=== PATIENT | male | born 1955 | race Two or more races ===

== ENCOUNTER 2020-04-21 11:20 | Outpatient (REF) | payer OTHER, SELFPAY | END 2020-04-21 11:21 | disposition home or self-care (01) | LOC: HO.LAB 11:20 | PROVIDERS: Visit Provider Internal Medicine | DX: Z20.828 Contact with and (suspected) exposure to other viral communicable diseases (principal) | CPT/HCPCS: 87635 ==

== ENCOUNTER 2020-06-10 15:48 | Outpatient (REF) | payer OTHER, SELFPAY | END 2020-06-10 15:49 | disposition home or self-care (01) | LOC: HO.HAP 15:48 | PROVIDERS: Visit Provider Hospitalist | DX: Z46.1 Encounter for fitting and adjustment of hearing aid (principal) | CPT/HCPCS: V5266 ==

== ENCOUNTER 2020-06-29 15:29 | Outpatient (REF) | payer OTHER, SELFPAY | END 2020-06-29 15:30 | disposition home or self-care (01) | LOC: HO.HAP 15:29 | PROVIDERS: Visit Provider Hospitalist | DX: Z46.1 Encounter for fitting and adjustment of hearing aid (principal); H90.3 Sensorineural hearing loss, bilateral | CPT/HCPCS: 92593; 99499 ==

== ENCOUNTER → 2021-07-08 10:37 | Outpatient (BNVA) | payer SELFPAY | PROVIDERS: PCP Hospitalist; Visit Provider Internal Medicine | DX: Z02.79 Encounter for issue of other medical certificate (principal) ==

== ENCOUNTER 2022-10-29 19:55 | Emergency (ER) | payer OTHER, SELFPAY ==
--- NOTE | ~2022-10-29 | XR_ITS ---
EXAMINATION: XR LUMBOSACRAL SPINE CLINICAL INFORMATION: Back pain COMPARISON: None available. TECHNIQUE: Three views of the lumbosacral spine. FINDINGS: No fracture. No subluxation. Alignment of vertebrae is normal. Mild degenerative lipping at the anterior endplates of lower thoracic vertebrae and at the anterior superior endplate of L5. Mild lumbar disc height narrowing at L4-L5. Mild facet joint arthrosis at the lumbosacral junction. Sacroiliac joint is normal. Moderate to large-volume of stool in the right colon. No abnormally dilated bowel loop. XR/XR lumbar spine 2-3V IMPRESSION: 1. No acute abnormality. 2. Mild degenerative spondylosis of lumbar spine. 3. Moderate to large-volume of stool in right colon.
[2022-10-29 20:15] VITALS: BP 179/93; PULSE 86; RESP 18; TEMP 36.8; O2SAT 96; BMI 27.4
--- NOTE | 2022-10-29 20:18 | ED_ITS ---
HPI - Back Pain/Injury General Chief Complaint: Back Pain/Injury <VARINDER Morillo - Last Filed: 10/29/22 20:22> Stated Complaint: back pain, no injury <VARINDER Morillo - Last Filed: 10/29/22 20:22> Time Seen by Provider: 10/29/22 21:24 <VARINDER Morillo - Last Filed: 10/29/22 20:22> Source: patient and family <Yadira Portillo MD - Last Filed: 10/29/22 22:31> Mode of arrival: ambulatory <Yadira Portillo MD - Last Filed: 10/29/22 22:31> History of Present Illness HPI Narrative: 67-year-old male who states that he has had an acute on chronic exacerbation of his underlying lower back/sciatica that he is unsure whether not he should attribute to starting jogging or the changing of his tire. He denies any associated fever, chills, IVDA history. He denies any weakness into either lower extremity, no bowel or bladder dysfunction and no saddle anesthesia. <Yadira Portillo MD - Last Filed: 10/29/22 22:31> Related Data Home Medications: Previous Rx's Medication Instructions Recorded cyclobenzaprine 5 mg tablet 5 mg PO BEDTIME PRN muscle spasm 10/29/22 #4 tabs ketorolac 10 mg tablet 10 mg PO Q6H PRN pain 5 days #20 10/29/22 tabs <VARINDER Morillo - Last Filed: 10/29/22 20:22> Allergies/Adverse Reactions: Allergies Allergy/AdvReac Type Severity Reaction Status Date / Time No Known Allergies Allergy Unverified 03/12/20 16:01 <VARINDER Morillo - Last Filed: 10/29/22 20:22> Review of Systems Review of Systems: Pertinent positives and negatives as stated in HPI <Yadira Portillo MD - Last Filed: 10/29/22 22:31> PMFSH Past Medical History Source: nursing notes reviewed <Yadira Portillo MD - Last Filed: 10/29/22 22:31> Social History Social History: Social History Advance Directives: No Advance Directives Information Provided: No <VARINDER Morillo - Last Filed: 10/29/22 20:22> Physical Exam Vital Signs: Vital Signs: Last Vital Signs Temp 98.3 F 10/29/22 20:15 Pulse 86 10/29/22 20:15 Resp 18 10/29/22 20:15 BP 179/93 H 10/29/22 20:15 Pulse Ox 96 10/29/22 20:15 O2 Del Method Room Air 10/29/22 20:15 BMI result Body Mass Index 27.4 <VARINDER Morillo - Last Filed: 10/29/22 20:22> Vital Signs: Last Vital Signs Temp 98.3 F 10/29/22 20:15 Pulse 86 10/29/22 20:15 Resp 18 10/29/22 20:15 BP 179/93 H 10/29/22 20:15 Pulse Ox 96 10/29/22 20:15 O2 Del Method Room Air 10/29/22 20:15 BMI result Body Mass Index 27.4 VITAL SIGNS: Reviewed. GENERAL: Well developed, well nourished, in no acute distress. HEAD: Normocephalic/atraumatic EYES: PERRLA, EOMI EARS: Ext canals without abnormality NOSE: Nares patent bilateral OROPHARYNX: no oral lesions noted, posterior pharynx clear NECK: Supple, no adenopathy LUNGS: Normal breath sounds. No adventitious sounds or accessory muscle use. SpO2<96> CARDIOVASCULAR: Regular rate and rhythm without noted murmurs ABDOMEN: Soft, non-tender, non-distended with bowel sounds. BACK: no midline vertebral tenderness or step-offs MUSCULOSKELETAL: No tenderness, deformities, or effusions noted on gross inspection. EXTREMITIES: No cyanosis, clubbing or edema. SKIN: Inspection of the skin reveals no rashes NEUROLOGIC: Alert and oriented x 4. Strength and sensation to light touch were grossly intact x 4. <Yadira Portillo MD - Last Filed: 10/29/22 22:31> Course Course Course Narrative: RME: 67yo M presenting to the ED complaining of low back pain radiating down RLE since this morning. Admits attempted to jog and changed tired 2 days ago, however denies direct injury/trauma or fall. Took Meloxicam at 11:00 without relief. Denies fever, urinary incontinence/retention + mild lower lumbar midline and left-sided paraspinal tenderness. Ambulating with steady gait. X-ray, IM Toradol, Lidoderm patch ordered Full HPI, ROS and PE to be performed by primary ED provider. <VARINDER Morillo - Last Filed: 10/29/22 20:22> Medications Administered Discontinued Medications Generic Name Dose Route Start Last Admin Trade Name Freq PRN Reason Stop Dose Admin Ketorolac Tromethamine 30 mg 10/29/22 20:19 10/29/22 21:22 Ketorolac Tromethamine 30 Mg/Ml Vial IM 10/29/22 20:20 30 mg ONCE ONE Administration Lidocaine 1 patch 10/29/22 20:21 10/29/22 21:22 Lidocaine 4 % Patch Adh..Patch TRANSDERMA 10/29/22 20:22 1 patch ONCE ONE Administration Protocol <VARINDER Morillo - Last Filed: 10/29/22 20:22> Medications Administered Discontinued Medications Generic Name Dose Route Start Last Admin Trade Name Freq PRN Reason Stop Dose Admin Ketorolac Tromethamine 30 mg 10/29/22 20:19 10/29/22 21:22 Ketorolac Tromethamine 30 Mg/Ml Vial IM 10/29/22 20:20 30 mg ONCE ONE Administration Lidocaine 1 patch 10/29/22 20:21 10/29/22 21:22 Lidocaine 4 % Patch Adh..Patch TRANSDERMA 10/29/22 20:22 1 patch ONCE ONE Administration Protocol <Yadira Portillo MD - Last Filed: 10/29/22 22:31> Medical Decision Making Medical Decision Making MDM Narrative: 67-year-old male with history and clinical presentation consistent with acute on chronic back pain with sciatica, no clinical suspicion for cauda equina. This is an atraumatic back pain <Yadira Portillo MD - Last Filed: 10/29/22 22:31> Differential Diagnosis Please see the discussion above <Yadira Portillo MD - Last Filed: 10/29/22 22:31> Radiology Impression Radiologist Impression: My interpretation is that there are no gross bony abnormalities. Radiology has not completed the read in 2-1/2 hours and will discharge the patient as there are no concerning or red flag symptoms. <Yadira Portillo MD - Last Filed: 10/29/22 22:31> Discharge Plan Discharge Clinical Impression: Strain of lumbar region, Sciatica <VARINDER Morillo Last Filed: 10/29/22 20:22> Patient Disposition: Home, Self-Care <VARINDER Morillo Last Filed: 10/29/22 20:22> Instructions: Low Back Strain (ED), Acute Low Back Pain (ED), Muscle Spasm (ED), Lower Back Exercises (ED) <VARINDER Morillo Last Filed: 10/29/22 20:22> Additional Instructions: 1. Tylenol 1000 mg, orally, every 6 hours as needed for pain control. Do not exceed 4000 mg within 24 hours. 2. Lidocaine patch, apply to area of maximal tenderness as directed on the outside packaging. 3. You received a prescription for Toradol (ketorolac) as well as cyclobenzaprine (Flexeril). You should use these medications as prescribed. 4. Please follow-up with your primary care provider in the next 2-3 days for re- evaluation further outpatient management. Return to the ER for any worsening symptoms. <VARINDER Morillo Last Filed: 10/29/22 20:22> Prescriptions: New cyclobenzaprine 5 mg tablet 5 mg PO BEDTIME PRN (Reason: muscle spasm) Qty: 4 0RF ketorolac 10 mg tablet 10 mg PO Q6H PRN (Reason: pain) 5 Days Qty: 20 0RF Rx Instructions: Patient received Toradol in the emergency room <VARINDER Morillo Last Filed: 10/29/22 20:22>
[2022-10-29] MEDS: Ketorolac Tromethamine 30 MG/ML VIAL IM (21:22)
[2022-10-29] MEDS: Lidocaine 4 % Patch ADH..PATCH 1 PATCH TRANSDERMA (21:22)
[2022-10-29] MEDS: Acetaminophen 325 MG TABLET 975 MG PO (22:27)
[2022-10-29] MEDS: Cyclobenzaprine HCl 5 MG TABLET PO (22:27)
== END 2022-10-29 22:46 | disposition home or self-care (01) ==
PROVIDERS: Emergency Provider Student in an Organized Health Care Education/Training Program
DX: S39.012A Strain of muscle, fascia and tendon of lower back, initial encounter (principal); X50.0XXA Overexertion from strenuous movement or load, initial encounter; M54.41 Lumbago with sciatica, right side; Y93.89 Activity, other specified; Y92.038 Other place in apartment as the place of occurrence of the external cause; Y99.9 Unspecified external cause status
CPT/HCPCS: 72100; 96372; 99283; 99284; J1885

== ENCOUNTER 2025-03-29 22:45 | Emergency (ER) | payer OTHER, SELFPAY ==
--- NOTE | ~2025-03-29 | XR_ITS ---
CLINICAL HISTORY: l knee pain Exam: AP, lateral, and oblique views of the left knee. Comparison: None provided. Findings: Bony alignment is anatomic. No acute fracture. Joint spaces are well preserved. Small joint effusion. Impression: Small joint effusion without acute bony abnormality. This document has been electronically signed by: Anuel Salvador MD on 03/29/2025 23:20:08
[2025-03-29 22:54] VITALS: BP 167/91; PULSE 80; RESP 16; TEMP 36.2; O2SAT 95; BMI 25.8
--- NOTE | 2025-03-30 01:39 | PC.NURSE ---
pt awaiting to be seen, pt reports pain for one month to left knee, Knee is not red or warm to touch, positive pulse and cms.
--- NOTE | 2025-03-30 01:43 | ED.GENADULT ---
HPI - General Adult General Chief complaint: Extremity Problem Stated complaint: LEFT KNEE PAIN Time Seen by Provider: 03/30/25 01:26 Source: patient Limitations: no limitations History of Present Illness ED Provider: Meche Mulligan PA-C HPI narrative: 69-year-old male with a history of sciatica presents with left knee pain x1 month. Patient states he does exercises where he ?kicks his legs forcefully forward?, to stretch his back out. Patient is unsure if he injured his left knee while performing his stretches. Denies actual trauma, redness, warmth of the joint, no fevers. Denies new activity or overuse injury. Related Data Previous Rx's ?Medication ?Instructions ?Recorded cyclobenzaprine 5 mg tablet 5 mg PO BEDTIME PRN muscle spasm 10/29/22 #4 tabs ketorolac 10 mg tablet 10 mg PO Q6H PRN pain 5 days #20 10/29/22 tabs meloxicam 15 mg tablet 15 mg PO DAILY PRN pain, moderate 03/30/25 #7 tabs Allergies Allergy/AdvReac Type Severity Reaction Status Date / Time No Known Allergies Allergy Verified 03/29/25 22:56 Review of Systems Review of Systems: Yes all other systems are reviewed and are negative Constitutional: Constitutional: Denies fatigue and Denies fever(s) Cardiovascular: Cardiovascular: Denies chest pain and Denies dyspnea Respiratory: Respiratory: Denies dyspnea Musculoskeletal: Musculoskeletal: Reports arthralgias and Denies joint swelling Integumentary/Breasts: Skin/Breast: Denies erythema Endocrine: Endocrine: Denies fatigue PMFSH Past Medical History Attestation statement: The following information was validated with the patient. Social History Social History Smoked in Last 30 Days: No Use of substances other than those prescribed or required for medical reasons: No Advance Directives: No Advance Directives Information Provided: Yes Do you have a plan to hurt others: No Plan Physical Exam ED Vital Signs: Vital Signs - 24 hr 03/29/25 22:54 03/30/25 02:36 Temperature 97.2 F 97.2 F Pulse Rate 80 84 Respiratory Rate 16 16 Blood Pressure 167/91 H 150/80 H Pulse Oximetry 95 99 Oxygen Delivery Method Room Air Room Air BMI result Body Mass Index 25.8 Const Other: Alert well-appearing Orientation/consciousness: patient oriented x3 Resp Effort & Inspection: normal respiratory effort Cardio Other: Normal peripheral perfusion Skin Other: Warm dry no rash Neuro General: patient oriented x3, gait normal, no focal motor deficits and CN's II-XI intact bilaterally Extrem Other: No swelling no deformity no redness or warmth of the joint, the patient has full flexion and extension and he is ambulatory Psych Other: Cooperative Medications Administered Discontinued Medications Generic Name Dose Route Start Last Admin Trade Name Cristina PRN Reason Stop Dose Admin Ketorolac Tromethamine 15 mg 03/30/25 02:18 03/30/25 02:22 Ketorolac Tromethamine 15 Mg/Ml Vial IM 03/30/25 02:19 15 mg ONCE ONE Administration Medical Decision Making Medical Decision Making [facility] Narrative: 69-year-old male with a history of sciatica presents with left knee pain x1 month. Patient states he does exercises where he ?kicks his legs forcefully forward?, to stretch his back out. Patient is unsure if he injured his left knee while performing his stretches. Denies actual trauma, redness, warmth of the joint, no fevers. Denies new activity or overuse injury. No relevant chronic issues History: Per patient I have considered the following differential diagnoses: Fracture, dislocation, contusion, strain, septic joint, gout Plan: Patient has an unremarkable exam, x-rays ordered from triage, he has a small effusion. Perhaps he strained it while doing his stretches. We will send with home care instructions . His exam was not consistent with a septic joint, or gout. I have independently reviewed the following tests: Left knee x-ray:Exam: AP, lateral, and oblique views of the left knee. Comparison: None provided. Findings: Bony alignment is anatomic. No acute fracture. Joint spaces are well preserved. Small joint effusion. Impression: Small joint effusion without acute bony abnormality. Differential Diagnosis Differential Diagnoses: The differential diagnosis associated with the presentation includes See medical decision-making Admission/Observation Consideration of admission/observation: Escalation of care including admission/observation considered Not applicable Radiology Impression Discussion of test interpretation with radiology: I have reviewed the radiologist's reading. Discharge Plan Discharge Clinical Impression: Effusion of knee joint, left Patient Disposition: Home, Self-Care Instructions: Swollen Knee Joint (ED), P.R.I.C.E. Treatment (ED) Additional Instructions: The x-ray was negative for fracture or dislocation, you do have some fluid within the joint, likely from inflammation. See home care instructions. I am providing you with a contact for our orthopedic service. Take the meloxicam as directed this is an anti-inflammatory, take it with food. Prescriptions: New meloxicam 15 mg tablet 15 mg PO DAILY PRN (Reason: pain, moderate) Qty: 7 0RF No Action cyclobenzaprine 5 mg tablet 5 mg PO BEDTIME PRN (Reason: muscle spasm) Qty: 4 0RF ketorolac 10 mg tablet 10 mg PO Q6H PRN (Reason: pain) 5 Days Qty: 20 0RF Rx Instructions: Patient received Toradol in the emergency room Referrals: Brandon Eli MD [Physician, Orthopedics] Referral Note: left knee pain/effusion Interventions: ED Discharge Assessment Last Done: 03/30/25 02:36 Discharge Date/Time: 03/30/25 02:37 Print Language: Thai
--- NOTE | 2025-03-30 02:35 | PC.NURSE ---
reviewed discharge instructions, pt verbalized understanding, no sign of distress upon discharge.
--- OUTSIDE RECORDS SUMMARY | 2025-03-30 02:35 | XMS_ITS | Encounter Summary ---
Author Organization [facility] Address [address] [place] [address] Phone Care Team Providers Care Necktie Centralizing Machine Operator Name Role Phone Rafael Vera MD Primary Care Provider [phone] Encounter Details Date Type Department Care Team (Late st Contact Info) Description 07/24/2019 Procedure Pass [facility] [address] [place] [address] Social History Tobacco Use Types Packs/Day Years Used Date Smoking Tobacco: Former Cigarettes 1 40 Smokeless Tobacco: Never Alcohol Use Standard Drinks/Week Comments No 0 (1 standard drink = 0.6 oz pur e alcohol) Sex and Gender Information Value Date Recorded Sex Assigned at Not on file Legal Sex Male 5:53 PM EST Gender Identity Not on file Sexual Orientation Not on file documented as of this encounter Plan of Treatment Not on file documented as of this encounter Visit Diagnoses Not on filedocumented in this encounter Care Teams Necktie Centralizing Machine Operator Relationship Specialty Start Date End Date Rafael Vera MD PCP - General Internal Medicine 02/09/15 documented as of this encounter Additional Source Comments The information contained in this document represents components of the legal health record. It is not the complete legal health record.[facility]
--- OUTSIDE RECORDS SUMMARY | 2025-03-30 02:35 | XMS_ITS | Encounter Summary ---
Author Organization [facility] Address [address] [place] [address] Phone Care Team Providers Care Harness Maker Name Role Phone Rafael Vera MD Primary Care Provider [phone] Encounter Details Date Type Department Care Team (Late st Contact Info) Description 05/26/2017 Procedure Pass [facility], [place] [address] [place] [address] Social History Tobacco Use Types Packs/Day Years Used Date Smoking Tobacco: Some Days Cigarettes 0.3 40 Smokeless Tobacco: Never Alcohol Use Standard [...] on filedocumented in this encounter Care Teams Harness Maker Relationship Specialty Start Date End Date Rafael Vera MD PCP - General Internal Medicine 02/09/15 documented as of this encounter Additional Source Comments The information contained in this document represents components of the legal health record. It is not the complete legal health record.[facility]
--- OUTSIDE RECORDS SUMMARY | 2025-03-30 02:35 | XMS_ITS | Clinical Summary ---
Author Organization [facility] Address [address] [place] [address] Phone Care Team Providers Care Head Custodian Name Role Phone Rafael Vera MD Primary Care Provider [phone] Allergies No known active allergies Medications acetaminophen (TYLENOL) 500 MG tablet Take 500 mg by mouth every 6 (six) hours as needed for pain (specific location in comments). Active therapeutic multivitamin tablet Take 1 tablet by mouth daily. Active cholecalciferol (VITAMIN D3) 25 MCG (1,000 unit) tablet Take 1,000 Units by mouth daily. Active oxymetazoline (AFRIN) 0.05 % nasal spray 2 sprays by Nasal route as needed for congestion. Active albuterol 90 mcg/actuation inhaler Inhale 2 puffs into the lungs every 6 (six) hours as needed for wheezing. Active oxyCODONE 5 MG immediate release tablet Take 1-2 tablets (5-10 mg total) by mouth every 4 (four) hours as needed for moderate pain. 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 Gastroesophageal reflux disease with esophagitis 06/04/2018 Dysphonia 06/04/2018 Asthma Overview (07/19/2019): only managed w prn albuterol very seldom use no triggers known and no steroids or hospitalizations Snores GERD (gastroesophageal reflux disease) Overview (07/19/2019): managed w no medication currently asymptomatic Kidney stone Overview (07/19/2019): last passed one year ago s/p surgery 5 yrs ago Laryngeal cyst Family History Medical History Relation Comments Diabetes Brother Ovarian cancer Mother Relation Status Comments Brother Alive Father Maternal Grandfather Maternal Grandmother Mother Paternal Grandfather Paternal Grandmother Sister Social History Tobacco Use Types Packs/Day Years Used Date Smoking Tobacco: Former Cigarettes 1 40 Smokeless Tobacco: Never Alcohol Use Standard Drinks/Week Comments No 0 (1 standard drink = 0.6 oz pur e alcohol) Education Answer Date Recorded Are you interested in more education? Not on alen e 10/29/2022 Are you concerned about learning? Not on file 10/29/2022 No 10/29/2022 No 10/29/2022 Digital Access Answer Date Recorded No 11/20/2022 No 11/20/2022 No 11/20/2022 Reliable internet access at home? Not on file 11/20/2022 Device with a working camera? Not on file Sex and Gender Information Value Date Recorded Sex Assigned at Not on file Legal Sex Male 5:53 PM EST Gender Identity Not on file Sexual Orientation Not on file Last Filed Vital Signs Vital Sign Reading Time Taken Comments Blood Pressure 144/86 07/24/2019 12:38 PM EST Pulse 79 07/24/2019 12:30 PM EST Temperature 36.3 C (97.4 F) 07/24/2019 12:38 PM EST Respiratory Rate 18 07/24/2019 12:30 PM EST Oxygen Saturation 98% 07/24/2019 12:30 PM EST Inhaled Oxygen Concentration - - Weight 80.7 kg (178 lb) 07/19/2019 1:10 PM EST Height 170.2 cm (5' 7 ) 07/19/2019 1:10 PM EST Body Mass Index 27.88 07/19/2019 1:10 PM EST Plan of Treatment Health Maintenance Due Date Last Done Comments Adult Td,Tdap Booster 1957 LIPID PANEL 1957 DEPRESSION SCREENING 1969 SMOKING Hx and SMOKELESS TOBACCO SCREENING 1970 HEPATITIS C SCREENING 09/03/1975 PNEUMOCOCCAL VACCINES (50+ years) (1 of 2 - PCV) 1976 COLOGUARD 2002 COLONOSCOPY 2002 COLORECTAL CANCER SCREENING 2002 FIT TEST 2002 FOBT 2002 SIGMOIDOSCOPY 2002 VIRTUAL COLONOSCOPY 2002 ZOSTER VACCINES (1 of 2) 09/03/2007 RSV VACCINE (1 - Risk 60-74 years 1-dose series) 2017 ABDOMINAL AORTIC ANEURYSM (AAA) SCREENING 2022 INFLUENZA VACCINE (#1) 2025 , 02/15/2017 COVID-19 VACCINE (3 - 2024-2 6 season) 2025 01/25/2021, 12/28/2020 HEPATITIS A VACCINES Aged Out No long er eligible based on patient's age to complete this topic HIB VACCINES Aged Out No longer eligi ble based on patient's age to complete this topic MENINGOCOCCAL VACCINES (ACWY) Aged Out No longer eligible based on patient's age to complete this topic MENINGOCOCCAL VACCINES (B) Aged Out N o longer eligible based on patient's age to complete this topic Medical Devices Not on file Insurance VARINDER TREJO [id number] [facility] MEDICARE REPLACEMENT MEDICARE REPLACEMENT MEDICARE REPLACEMENT MEDICARE REPLACEMENT [facility] MEDICARE REPLACEMENT Advance Directives For more information, please contact: [phone] (9AM - 5PM [facility], Monday-Monday) Documents on File Type Date Recorded Patient Special Effects Person Expl anation Healthcare Proxy 07/19/2019 healthcare proxy 07/19/19 * Full Code (Presumed) (Latest Code Status on File) Date Activated Date Inactivated Comments 07/24/2019 7:22 AM 07/24/2019 3:35 PM Care Teams Head Custodian Relationship Specialty Start Date End Date Rafael Vera MD PCP - General Internal Medicine 02/09/15 Additional Source Comments The information contained in this document represents components of the legal health record. It is not the complete legal health record.[facility]
[2025-03-30 02:36] VITALS: BP 150/80; PULSE 84; RESP 16; TEMP 36.2; O2SAT 99
--- OUTSIDE RECORDS SUMMARY | 2025-03-30 02:36 | XMS_ITS | Clinical Summary ---
Author Organization [facility] Address [address] [place] [address] Care Team Providers Care Radiology Ct Technologist Name Role Phone Unavailable Primary Care Provider Unavailabl e Allergies No known active allergies Medications ibuprofen 200 MG tablet 4 times a day. Active Ventolin HFA 108 (90 Base) MCG/ACT inhaler INHALE 2 PUFFS BY MOUTH EVERY 6 HOURS NEEDED FOR WHEEZE 06/21/2022 Active Social History Tobacco Use Types Packs/Day Years Used Date Smoking Tobacco: Never Smokeless Tobacco: Never Tobacco Cessation:Counseling Given: Not Answered Sex and Gender Information Value Date Recorded Sex Assigned at Male 04/25/2022 10:29 AM EDT Legal Sex Male 10:29 AM EDT Gender Identity Male 04/25/2022 10:29 AM EDT Sexual Orientation Straight 04/25/2022 10 :29 AM EDT Plan of Treatment Health Maintenance Due Date Last Done Comments CT Colonography 1957 Colonoscopy 1957 Colorectal Cancer Screening 1957 Dental Oral Exam 1957 Dental Prophylaxis 1957 Dental X-Ray: Bitewings 1957 Dental X-Ray: Full Mouth 1957 Depression Screening 1957 FIT DNA/Cologuard 1957 FIT 1957 FOBT 1957 Lipid Panel 1957 SDOH Screening 1957 Sigmoidoscopy 1957 Alcohol/Substance Use Screening 1969 Hepatitis C Screening 09/03/1975 RSV Patients and Patients Aged 60 years or older (1 - Risk 60-74 years 1-dose series) 2017 Tobacco Screening 07/19/2023 07/19/2022 DTaP/Tdap/Td Vaccines (2 - Tdap) 04/09/2024 04/09/2014 COVID-19 Vaccine ( season) 2025 02/23/2022, 01/25/2021, 12/28/2020 Influenza Vaccine (#1) 2025 , 05/17/2019, 04/11/2018, Additional history exists Pneumococcal Vaccine: 50+ Years Completed 07/24/2022, 09/22/2014 Zoster Vaccines Completed 07/24/2022, 01/10/2022 HIB Vaccines Aged Out No longer eligi ble based on patient's age to complete this topic HPV Vaccines Aged Out No longer eligi ble based on patient's age to complete this topic Hepatitis A Vaccines Aged Out No long er eligible based on patient's age to complete this topic Hepatitis B Vaccines Aged Out No long er eligible based on patient's age to complete this topic IPV Vaccines Aged Out No longer eligi ble based on patient's age to complete this topic Meningococcal B Vaccine Aged Out No l onger eligible based on patient's age to complete this topic Meningococcal Vaccine Aged Out No barbi jing eligible based on patient's age to complete this topic RSV under 20 months Aged Out No longe r eligible based on patient's age to complete this topic Rotavirus Vaccines Aged Out No longer eligible based on patient's age to complete this topic Insurance [facility]
--- OUTSIDE RECORDS SUMMARY | 2025-03-30 02:36 | XMS_ITS | Encounter Summary ---
Author Organization [facility] Address [address] [facility] [address] [place] [address] Care Team Providers Care Child Life Specialist Name Role Phone Unavailable Primary Care Provider Unavailabl e Encounter Details Date Type Department Care Team (Latest Contact Info) Description 01/12/2022 Abstract [facility] CONVERSIONS Dental, Provider, DDS Social History Tobacco Use Types Packs/Day Years Used Date Smoking Tobacco: Never Assessed Sex and Gender Information Value Date Recorded Sex Assigned at Male 04/25/2022 10:29 AM EDT Legal Sex Male 10:29 AM EDT Gender Identity Male 04/25/2022 10:29 AM EDT Sexual Orientation Straight 04/25/2022 10 :29 AM EDT documented as of this encounter Plan of Treatment Not on file documented as of this encounter Visit Diagnoses Not on filedocumented in this encounter
--- OUTSIDE RECORDS SUMMARY | 2025-03-30 02:36 | XMS_ITS | Encounter Summary ---
Author Organization [facility] Address [address] [place] [id number] Phone Care Team Providers Care Pin Worker Name Role Phone Rafael Vera MD Primary Care Provider [phone] Encounter Details Date Type Department Care Team (Late st Contact Info) Description 06/21/2017 Procedure Pass [facility] [address] [place] [address] Social History Tobacco Use Types Packs/Day Years [...] on filedocumented in this encounter Care Teams Pin Worker Relationship Specialty Start Date End Date Rafael Vera MD PCP - General Internal Medicine 02/09/15 documented as of this encounter Additional Source Comments The information contained in this document represents components of the legal health record. It is not the complete legal health record.[facility]
--- OUTSIDE RECORDS SUMMARY | 2025-03-30 02:36 | XMS_ITS | Encounter Summary ---
Author Organization [facility] Address [address] [facility] [address] [place] [id number] Phone Care Team Providers Care Physician Relations Representative Name Role Phone Rafael Vera MD Primary Care Provider [phone] Encounter Details Date Type Department Care Team (Late st Contact Info) Description 02/06/2018 Procedure Pass [facility] Endoscopy Department [address] [place] [address] Social History Tobacco Use Types Packs/Day Years [...] on filedocumented in this encounter Care Teams Physician Relations Representative Relationship Specialty Start Date End Date Rafael Vera MD PCP - General Internal Medicine 02/09/15 documented as of this encounter Additional Source Comments The information contained in this document represents components of the legal health record. It is not the complete legal health record.[facility]
--- OUTSIDE RECORDS SUMMARY | 2025-03-30 02:36 | XMS_ITS | Encounter Summary ---
Author Organization [facility] Address [address] [facility] [address] [place] [address] Care Team Providers Care Vocational Instructor Name Role Phone Unavailable Primary Care Provider Unavailabl e Encounter Details Date Type Department Care Team (Late st Contact Info) Description 05/31/2022 Abstract [facility] ADULT DENTAL [address] [place] [address] Dental, Provider, DDS Social History Tobacco Use [...] on file documented as of this encounter Procedures Procedure Name Priority Date/Time Associated Diagnosis Comments 29 DO AMALGAM FILLING Routine 05/31/2022 12:00 AM EST 32 WOLFGANG AMALGAM FILLING Routine 05/31/2022 12:00 AM EST 3 MOL AMALGAM FILLING Routine 05/31/2022 12:00 AM EST 5 ROOT CANAL Routine 05/31/2022 12:00 AM EST 4 ROOT CANAL Routine 05/31/2022 12:00 AM EST documented in this encounter Visit Diagnoses Not on filedocumented in this encounter
--- OUTSIDE RECORDS SUMMARY | 2025-03-30 02:36 | XMS_ITS | Encounter Summary ---
Author Organization [facility] Address [address] [place] [address] Phone Care Team Providers Care Blanket Weaver Name Role Phone Rafael Vera MD Primary Care Provider [phone] Encounter Details Date Type Department Care Team ([facility] st Contact Info) Description 06/12/2019 Prep for Surgery [facility] Otolaryngology [address] [place] [id number] Jason Mora MD [address] [place] [id number] [email or web address] Benign neoplasm of larynx (Primary Dx) Social History Tobacco Use Types Packs/Day Years [...] documented as of this encounter Visit Diagnoses Diagnosis Benign neoplasm of larynx- Primary documented in this encounter Care Teams Blanket Weaver Relationship Specialty Start Date End Date Rafael Vera MD PCP - General Internal Medicine 02/09/15 documented as of this encounter Additional Source Comments The information contained in this document represents components of the legal health record. It is not the complete legal health record.[facility]
== END 2025-03-30 02:37 | disposition home or self-care (01) ==
LOC: HO.ED 03-30 02:32
PROVIDERS: Emergency Provider Emergency Medicine
DX: M25.462 Effusion, left knee (principal); M25.562 Pain in left knee
CPT/HCPCS: 73562; 96372; 99284; J1885

== ENCOUNTER → 2025-03-29 23:14 | Outpatient (BNV) | payer OTHER, SELFPAY | PROVIDERS: Visit Provider Radiology Diagnostic Radiology | DX: M25.462 Effusion, left knee (principal) | CPT/HCPCS: 73562 ==